=== PATIENT | male | born 1970 | race Caucasian/White ===

== ENCOUNTER 2018-06-21 10:31 | Emergency (ER) | payer MEDICAID ==
[2018-06-21 12:20] LABS: PLATELET COUNT 195 10^3/uL (150-400)
--- NOTE | 2018-06-21 13:29 | EDPHY ---
H & P Time Seen by Provider: 06/21/18 12:03 HPI/ROS: HPI Chest pains. 48-year-old male by private vehicle. This patient complains of intermittent chest pain which he describes as right-sided parasternal mid chest pain which is exacerbated by sneezing or by sudden movements of his chest wall. He reports he has had this ongoing now for 2-3 days. He also reports that he has a strange sensation of chest discomfort at this location when he swallows food. He states however that he is able swallow food without difficulty. No significant family history of coronary artery disease. No personal history of diabetes, hypertension or hyperlipidemia. He smokes marijuana but not cigarettes. ROS: Constitutional: No fever, no chills. No weakness. Eyes: No discharge. No changes in vision. ENT: No sore throat. No nasal congestion or rhinorrhea. Respiratory: No cough. No shortness of breath. Cardiac: As above, no palpitations. Gastrointestinal: No abdominal pain, no vomiting, no diarrhea. Genitourinary: No hematuria. No dysuria or increased frequency with urination. Musculoskeletal: No back pain. No neck pain. No myalgias or arthralgias. Skin: No rashes. Neurological: No headache. No focal weakness or altered sensation. Past medical history: Orthopedic surgeries. Social history: No alcohol. Denies IV drugs and street drugs. Denies cocaine and methamphetamine. As above. Nonsmoker. Physical Exam: General Appearance: Alert, no distress. This patient is responding to questions appropriately and in full sentences. This patient appears well- hydrated and well-nourished. Eyes: Pupils equal and round no pallor or injection. No lid edema, erythema or injection. Respiratory: There are no retractions, lungs are clear to auscultation with good air movement bilaterally. Chest wall is grossly normal on inspection. No rashes. No focal tenderness on palpation of his mid chest and parasternal areas. Cardiovascular: Regular rate and rhythm. No murmur. Gastrointestinal: Abdomen is soft and nontender, no masses, bowel sounds normal. No focal tenderness at McBurney's point. No Patel sign. Neurological: Motor sensory function is grossly intact. Cranial nerves are normal. Gait is normal. Skin: Warm and dry, no rashes. Musculoskeletal: Neck is supple and nontender. Extremities are symmetrical. All joints range without pain or impingement. Psychiatric: No agitation. No depression. Database: EKG: EKG time is 11:59 a.m.; EKG shows a narrow complex normal sinus rhythm with a ventricular rate of 53. The [place], QRS, QT intervals are within normal limits. There are no ST-T wave changes indicative of ischemic or injury pattern. No evidence of right heart strain. Interpreted by me. Imaging: Chest x-ray AP portable: Borderline cardiac prominence. Otherwise, no acute cardiopulmonary disease process noted. Interpreted by me. Procedures: Emergency department course: Triage vital signs reviewed. Moderately hypertensive. On my evaluation blood pressure is 130/80. Triage vital signs otherwise normal. He is low risk by heart score. EKG obtained and reviewed by myself. 1:30 p.m., the patient was re-evaluated, I reviewed the results of his diagnostic testing with him in detail. This time he is comfortable. I discussed follow-up with a manager business systems given his discomfort when he swallows food. This may be related to esophageal spasm. Aortic dissection, pulmonary embolism, acute coronary syndrome unlikely. He does feel comfortable going home. The pain appears to be related to movement, sneezing and swallowing as noted. The pain is not consistent with a cardiac etiology. He does feel comfortable going home at this time. Return to emergency department precautions were thoroughly reviewed with him. All of his questions were answered. He was discharged from the emergency department in good condition. Differential Diagnosis: The differential diagnosis on this patient includes but is not limited to esophageal spasm, pleurisy, costal chondritis. Acute coronary syndrome, aortic dissection, pulmonary embolism, pneumothorax, pneumonia unlikely. This represents a partial list of diagnoses considered. These considerations are based on history, physical exam, past history, reassessment and diagnostic testing. Smoking Status: Never smoked Constitutional: Initial Vital Signs Temperature (C) 36.2 C 06/21/18 10:35 Heart Rate 78 06/21/18 10:35 Respiratory Rate 18 06/21/18 10:35 Blood Pressure 158/91 H 06/21/18 10:35 O2 Sat (%) 96 06/21/18 10:35 O2 Delivery Mode Room Air Allergies/Adverse Reactions: No Known Allergies Allergy (Unverified 06/21/18 10:39) Home Medications: Medication Instructions Recorded NK [No Known Home Meds] 06/21/18 Medical Decision Making - Data Points Laboratory Results: Laboratory Results 06/21/18 12:07 06/21/18 12:07 Point of Care Test Results: Chemistry 06/21/18 12:27 POC Troponin I 0.01 ng/mL ng/mL (0.00-0.08) Departure - Departure Disposition: Home, Routine, Self-Care Clinical Impression: Chest discomfort Condition: Good Instructions: Chest Pain (ED) Additional Instructions: Read and follow provided instructions. Follow-up with your primary care physician in 1-2 days for re-evaluation. Consider gastroenterology referral for endoscopy to evaluate your esophagus. I have also provided you with a cardiology referral. They will be notified that your here. You should follow-up with Cardiology on Sunday or Sunday of next week for re-evaluation as discussed. Avoid any activity which exacerbates your pain. Avoid any strenuous activity. Return to the emergency department for worsening or persistent pain, shortness of breath or other serious concerns. Referrals: ASH[facility] BALLESTEROS [Other] - As per Instructions [facility] [Provider Group] - As per Instructions
[2018-06-21 13:35] VITALS: BP 141/84
--- NOTE | 2018-06-21 15:19 | CPEKG ---
Test Reason : OPEN Blood Pressure : / mmHG Vent. Rate : 053 BPM Atrial Rate : 052 BPM P-R Int : 171 ms QRS Dur : 078 ms QT Int : 433 ms P-R-T Axes : 043 059 051 degrees QTc Int : 407 ms Sinus rhythm Confirmed by Bill Fabian ([id number]) on 06/21/2018 3:18:44 PM Referred By: Confirmed By:Bill Fabian
== END 2018-06-21 13:48 | disposition home or self-care (01) ==
DX: R07.9 Chest pain, unspecified (principal)
CPT/HCPCS: 84484-PO